=== PATIENT | female | born 1960 | race Caucasian/White ===

== ENCOUNTER → 2018-02-05 09:13 | Outpatient (CLI) | payer OTHER, SELFPAY ==
--- NOTE | 2018-02-05 09:17 | DI.RAD.S_ITS ---
PROCEDURE: XR CHEST 2V INDICATIONS: ongoing cough TECHNIQUE: 2 views of the chest were acquired. COMPARISON: None. FINDINGS: Surgical changes and devices: None. Lungs and pleura: No pleural effusions or pneumothorax. Lungs are clear. Mediastinum: Mediastinal contours are normal. Heart size is normal. Bones and chest wall: No suspicious bony abnormalities. Soft tissues appear unremarkable. IMPRESSION: Source of persistent cough not found. Dictated by: Ren Hill M.D. on 02/05/2018 at 10:32 Approved by: Ren Hill M.D. on 02/05/2018 at 10:33
[2018-02-05 12:29] LABS: Blood Urea Nitrogen 14 mg/dL (7-17); Calcium 9.2 mg/dL (8.4-10.2); Carbon Dioxide 25 mmol/L (22-32); Chloride 105 mmol/L (98-107); Estimated Glomerular Filt Rate > 60.0 mL/min (>60); Glucose 112 mg/dL (70-100); HEMOLYSIS 17 (0-50); Potassium 3.9 mmol/L (3.4-5.1); Sodium 141 mmol/L (137-145)
[2018-02-05 12:51] LABS: Hematocrit 38.3 % (36-46); Mean Corpuscular Hemoglobin 30.9 PG (26-34); Mean Corpuscular Volume 90.9 fL (80-100); Platelet Count 288 X10^3/uL (150-400); Red Blood Cell Count 4.22 X10^6/uL (4.0-5.2); Red Cell Distribution Width 13.2 % (11.6-14.8); White Blood Cell Count 10.6 X10^3/uL (4.5-11.0)
[2018-02-05 12:53] LABS: Add Manual Diff / Slide Review YES
[2018-02-05 12:57] LABS: Thyroid Stimulating Hormone 1.75 uIU/mL (0.47-4.68)
[2018-02-05 13:07] LABS: Neutrophils Absolute Manual 8162 /uL (3000-5900); Total Cells Counted 100
[2018-02-05 13:08] LABS: Morphology Comment Normal Morphology
== END ==
PROVIDERS: Family Provider Family Medicine; PCP Family Medicine; Visit Provider Family Medicine
DX: R05 Cough (principal); D64.9 Anemia, unspecified
CPT/HCPCS: 36415; 71046; 80048; 84443; 85025

== ENCOUNTER → 2018-04-19 11:24 | Outpatient (CLI) | payer OTHER, SELFPAY ==
--- NOTE | 2018-04-19 | DI.MG.S_ITS ---
BILATERAL DIGITAL SCREENING MAMMOGRAM 3D/2D WITH CAD: 04/19/2018 CLINICAL: Routine screening. Comparison is made to exams dated: 09/23/2015 mammogram, 05/02/2012 mammogram, and 04/13/2011 mammogram - [facility]. The tissue of both breasts is heterogeneously dense. This may lower the sensitivity of mammography. Current study was also evaluated with a Computer Aided Detection (CAD) system. No significant masses, calcifications, or other findings are seen in either breast. There has been no significant interval change. IMPRESSION: NEGATIVE There is no mammographic evidence of malignancy. A 1 year screening mammogram is recommended. This exam was interpreted at Station ID: [id number]. NOTE: For mammograms, a report in lay terms will be sent to the patient. Approximately 15% of breast malignancies will not be visualized mammographically. In the management of a palpable breast mass, a negative mammogram must not discourage biopsy of a clinically suspicious lesion. Electronically Signed By: Safia bower/edith:04/21/2018 09:05:07 copy to: KELLY GAVIN letter sent: Normal Exam ACR BI-RADS Category 1: Negative 3341F
== END ==
PROVIDERS: PCP Family Medicine; Visit Provider Family Medicine
DX: Z12.31 Encounter for screening mammogram for malignant neoplasm of breast (principal)
CPT/HCPCS: 77063; 77067

== ENCOUNTER → 2018-08-07 14:26 | Outpatient (CLI) | payer OTHER, SELFPAY ==
[2018-08-07 15:02] LABS: Influenza A and B by PCR Rapid Negative (Negative)
== END ==
PROVIDERS: PCP Family Medicine; Visit Provider Registered Nurse
DX: R50.9 Fever, unspecified (principal)
CPT/HCPCS: 87400

== ENCOUNTER → 2020-05-13 13:34 | Outpatient (CLI) | payer OTHER, SELFPAY ==
[2020-05-13 14:40] LABS: Add Manual Diff / Slide Review NO; Basophils Absolute Auto 0 /uL (0-100); Basophils Percent Auto 0.7 % (0-2); Eosinophils Absolute Auto 100 /uL (0-450); Eosinophils Percent Auto 1.3 % (2-4); Hematocrit 36.9 % (36-46); Hemoglobin 13.2 g/dL (12.0-16.0); Lymphocytes Absolute Auto 1700 /uL (1100-4500); Lymphocytes Percent Auto 30.7 % (25-40); Mean Corpuscular HGB Conc 35.6 % (30-36); Mean Corpuscular Hemoglobin 32.9 PG (26-34); Mean Corpuscular Volume 92.5 fL (80-100); Monocytes Absolute Auto 500 /uL (0-900); Monocytes Percent Auto 9.3 % (3-14); Neutrophils Absolute Auto 3100 /uL (1500-7000); Platelet Count 240 X10^3/uL (150-400); Red Cell Distribution Width 13.5 % (11.6-14.8); White Blood Cell Count 5.4 X10^3/uL (4.5-11.0)
[2020-05-13 14:53] LABS: Hemoglobin A1C% w Est Avg Glu 5.8 % (4.0-6.0)
[2020-05-13 14:58] LABS: Alanine Aminotransferase 20 IU/L (<35); Albumin 4.3 g/dL (3.5-5.0); Albumin Globulin Ratio 1.4 (1.0-2.8); Alkaline Phosphatase 45 U/L (38-126); Aspartate Aminotransferase 25 IU/L (14-36); BUN Creatinine Ratio 27.4 (6-22); Bilirubin Total 0.4 mg/dL (0.2-1.3); Blood Urea Nitrogen 20 mg/dL (7-17); Calcium 9.7 mg/dL (8.4-10.2); Carbon Dioxide 33 mmol/L (22-32); Chloride 103 mmol/L (98-107); Cholesterol 189 mg/dL (140-199); Estimated Glomerular Filt Rate > 60.0 mL/min (>60); Glucose 114 mg/dL (70-100); HDL Cholesterol 64 mg/dL (40-60); HEMOLYSIS < 15 (0-50); LDL Cholesterol Calculated 113 mg/dL (<100); Potassium 4.5 mmol/L (3.4-5.1); Sodium 138 mmol/L (137-145); Total Protein 7.3 g/dL (6.3-8.2); Triglycerides 58 mg/dL (35-150)
== END ==
PROVIDERS: PCP Family Medicine; Referring Provider Family Medicine; Visit Provider Family Medicine
DX: I10 Essential (primary) hypertension (principal); R63.1 Polydipsia; Z83.3 Family history of diabetes mellitus
CPT/HCPCS: 36415; 80053; 80061; 83036; 85025

== ENCOUNTER → 2021-01-11 10:50 | Outpatient (CLI) | payer OTHER, SELFPAY ==
[2021-01-11 12:57] LABS: Hematocrit 33.9 % (36-46); Hemoglobin 13.2 g/dL (12.0-16.0); Mean Corpuscular Hemoglobin 37.4 PG (26-34); Mean Corpuscular Volume 95.8 fL (80-100); Platelet Count 232 X10^3/uL (150-400); Red Blood Cell Count 3.54 X10^6/uL (4.0-5.2); Red Cell Distribution Width 13.5 % (11.6-14.8); White Blood Cell Count 4.8 X10^3/uL (4.5-11.0)
[2021-01-11 13:38] LABS: Alanine Aminotransferase 23 IU/L (<35); Albumin 4.3 g/dL (3.5-5.0); Albumin Globulin Ratio 1.4 (1.0-2.8); Alkaline Phosphatase 48 U/L (38-126); Aspartate Aminotransferase 27 IU/L (14-36); BUN Creatinine Ratio 25.4 (6-22); Bilirubin Total 0.2 mg/dL (0.2-1.3); Blood Urea Nitrogen 17 mg/dL (7-17); Carbon Dioxide 28 mmol/L (22-32); Chloride 103 mmol/L (98-107); Estimated Glomerular Filt Rate > 60.0 mL/min (>60); Glucose 109 mg/dL (70-100); HEMOLYSIS < 15 (0-50); Potassium 4.9 mmol/L (3.4-5.1); Sodium 138 mmol/L (137-145); Total Protein 7.3 g/dL (6.3-8.2)
[2021-01-11 14:06] LABS: TSH w/ Reflex to FT4 1.02 uIU/mL (0.47-4.68)
== END ==
PROVIDERS: PCP Nurse Practitioner Family; Referring Provider Nurse Practitioner Family; Visit Provider Nurse Practitioner Family
DX: Z00.00 Encounter for general adult medical examination without abnormal findings (principal); F41.9 Anxiety disorder, unspecified; I10 Essential (primary) hypertension
CPT/HCPCS: 36415; 80053; 84443; 85027

== ENCOUNTER 2021-02-03 18:19 | Emergency (ER) | payer OTHER, SELFPAY ==
[2021-02-03 18:28] VITALS: BP 151/90; PULSE 73; RESP 18; TEMP 37; O2SAT 98; BMI 27.4
[2021-02-03 22:23] VITALS: BP 138/99; PULSE 75; O2SAT 96
[2021-02-03] MEDS: TET,DIPH,PERTUSS(ACELL),VAC/PF 0.5 ML SYRINGE IM (22:30)
--- NOTE | 2021-02-03 22:33 | ED.WOUNDLAC ---
HPI - Wound/Laceration General Chief Complaint: Wound/Laceration Stated Complaint: LEFT LEG LACERATION AND BUMP Time Seen by Provider: 02/03/21 22:33 Source: patient Mode of arrival: Ambulatory Limitations: no limitations History of Present Illness HPI narrative: 60-year-old female nonsmoker with history of ulcerative colitis and anxiety presents with a chief complaint of an accidental laceration to her left posterior ankle just prior to arrival. She had been trying to move a large floor standing speaker when it toppled over and landed on the back of her leg. She has minimal pain and tenderness but this is worsened by ambulation. She denies any numbness, tingling or weakness. She is otherwise well and free of complaint. Related Data Previous Rx's Medication Instructions Recorded amlodipine 5 mg tablet (Norvasc) 5 mg PO QDAY #90 tab 01/11/21 citalopram 40 mg tablet See Rx Instructions .ROUTE 01/11/21 .COMPLEX #90 tablet nadolol 20 mg tablet See Rx Instructions .ROUTE 01/11/21 .COMPLEX #180 tab rizatriptan 10 mg disintegrating 10 mg PO PRN PRN #9 tab 01/11/21 tablet (Maxalt-MAXILLOFACIAL PROSTHETICS DENTIST) doxycycline hyclate 100 mg capsule 100 mg PO BID #20 cap 02/03/21 Allergies Allergy/AdvReac Type Severity Reaction Status Date / Time iodine Allergy Severe STOP Verified 02/03/21 18:35 BREATHING Review of Systems Review of Systems Narrative: GENERAL: Denies chills, fatigue, malaise, fever, sweats. HEENT: Denies sinus pain, ear pain, sore throat, difficulty swallowing, dizziness. RESPIRATORY: Denies dyspnea, cough, wheezing, hemoptysis, sputum. CARDIOVASCULAR: Denies chest pain, palpitations, orthopnea, edema, GASTROINTESTINAL: Denies nausea, vomiting, abdominal pain, diarrhea, constipation, melena. : Denies dysuria, frequency, incontinence, hematuria, urinary retention. MUSCULOSKELETAL: denies weakness, joint pain, or bony pain SKIN: The HPI NEUROLOGIC: Denies weakness, headache, numbness, change in speech, confusion, seizures, incoordination. PSYCHIATRIC: No concerning psychosocial issues. 12 point review of systems is negative except for those stated above Patient History Medical History Abscess of face (2013) Chicken pox (~2010) Depression Headache Herpes (~2010) Migraines (2009) Rash and nonspecific skin eruption Spider bite (2012) Staph infection (2012) Ulcerative colitis (~2019) Wears glasses Surgical History Anesthesia History of laparoscopy (~1989) Status post breast biopsy (2011) Status post breast biopsy (2012) Status post colonoscopy (1994) Family History Brother Age: 58 Hypertension High cholesterol Diabetes mellitus Father Cancer Diabetes mellitus Heart disease Hypertension High cholesterol Mother Hypertension High cholesterol Osteoporosis Stroke Cancer Diabetes mellitus Social History Smoking Status: Never smoker alcohol intake: never substance use type: does not use Smoking Status: Never smoker alcohol intake frequency: 0-2 drinks per day Substance Use Type: does not use Exam Narrative Exam Narrative: GEN: AOx3 and in mild distress EYES: Pupils are equal, round, and reactive to light and accommodation. Extraoccular muscles are intact bilaterally. There is no subconjunctival hemorrhage or exudate. CHEST: Lungs are clear to auscultation bilaterally and free of wheezes, rales, or rhonchi. Heart rate is regular rhythm, there are no murmurs, clicks, rubs, or gallops. There is no chest wall tenderness. ABD: Abdomen is soft and nontender. There is no guarding or rebound. Bowel sounds are normal in all 4 quadrants. There is no mass or organomegaly. EXT: Full painless ROM of all extremities with no loss of sensation or strength. There is a 3 cm x 2 cm dark purple area of ecchymosis on the posterior calf without surrounding erythema or tenderness SKIN: 3.5 cm slightly irregular laceration overlying the posterior left ankle. Achilles tendon is fully intact and is visualized in a bloodless field. No foreign body noted. [place], and dry. No erythema or rash Initial Vital Signs Initial Vital Signs: Vital Signs Temperature 98.6 F 02/03/21 18:28 Pulse Rate 73 02/03/21 18:28 Respiratory Rate 18 02/03/21 18:28 Blood Pressure 151/90 H 02/03/21 18:28 Pulse Oximetry 98 02/03/21 18:28 Procedures Laceration Repair Laceration 1: Site: lower extremity Side (If applicable): left Size (cm): 3.5 Description: irregular and clean Depth: simple, single layer Local Anesthetic: lidocaine 1% and with bicarb Amount of anesthesia used (mL): 4 Pre-repair: wound explored Skin layer closed with: nylon Size (cm): 4-0 Number of sutures: 6 Course Orders Ordered: Discontinued Medications Bacitracin (Bacitracin Oint 0.9 Gm Pckt) 1 applic TOP NOW ONE Stop: 02/03/21 22:58 Last Admin: 02/03/21 22:58 Dose: 1 applic Documented by: ROSANGELA Diphtheria/Tetanus/Acell Pertussis (Tet,Diph,Pertuss(Acell),Vac/Pf 0.5 Ml Syringe) 0.5 ml IM .ONCE ONE Stop: 02/03/21 18:36 Last Admin: 02/03/21 22:30 Dose: 0.5 ml Documented by: JUANA Lidocaine/Sodium Bicarbonate (Lido 1%/Sod Bicarb 8.4% (10ml) 10 Ml Syringe) 10 ml INJ NOW ONE Stop: 02/03/21 22:37 Last Admin: 02/03/21 22:39 Dose: 10 ml Documented by: JUANA Vital Signs Vital signs: Vital Signs - 8 hr 02/03/21 22:23 02/03/21 23:03 Pulse Rate 75 71 Respiratory Rate 14 Blood Pressure 138/99 H 118/78 Pulse Oximetry 96 96 Discharge Plan Departure Patient Disposition: Home Clinical Impression: Laceration of ankle, left Qualifiers: Encounter type: initial encounter Qualified Code(s): S91.012A - Laceration without foreign body, left ankle, initial encounter Instructions: DI for Laceration Repair Activity Restrictions/Additional Instructions: *You have been diagnosed with [left posterior ankle laceration] *What to do: *Please continue to take your regular medications as directed. [ x] New medication prescriptions sent to your pharmacy: [[facility]] [ ] New medication written as a paper prescription [ ] No new medications given * Please keep the wound clean and dry to the best of your ability. Please monitor for signs of infection such as redness to the skin or increasing pain. Have the sutures removed by your doctor in about 7-10 days. If you are unable to get into your doctor, we would be happy to remove the sutures in that same timeframe. *If you do not have a primary care provider please contact the [facility] Resource line at [phone]. They will ask some questions about your medical history and help get you set up with a doctor in the community. *Return to Emergency Department if you should have any new, worsening or concerning symptoms, such as [fever greater than 101 F, shaking chills, worsening pain, persistent vomiting or other bothersome symptoms] Prescriptions: New doxycycline hyclate 100 mg capsule 100 mg PO BID Qty: 20 RF: 0 No Action amlodipine [Norvasc] 5 mg tablet 5 mg PO QDAY Qty: 90 RF: 3 citalopram 40 mg tablet See Rx Instructions .ROUTE .COMPLEX Qty: 90 RF: 3 nadolol 20 mg tablet See Rx Instructions .ROUTE .COMPLEX Qty: 180 RF: 3 rizatriptan [Maxalt-MAXILLOFACIAL PROSTHETICS DENTIST] 10 mg tablet,disintegrating 10 mg PO PRN PRN (Reason: migraine headache) Qty: 9 RF: 3 Referrals: Jun Weldon ARNP [Primary Care Provider] -
[2021-02-03] MEDS: LIDO 1%/SOD BICARB 8.4% (10ML) 10 ML SYRINGE INJ (22:39)
--- NOTE | 2021-02-03 22:44 | PC.NURSE ---
There is a bruise under left knee where patient feels a knot and is concerned over DVT risks. Dr Wolf informed and evaluated at bedside
[2021-02-03] MEDS: BACITRACIN OINT 0.9 GM PCKT 1 APPLIC TOP (22:58)
--- NOTE | 2021-02-03 23:02 | PC.NURSE ---
Bacitracin applied, wrapped with non adherent gauze and kurlex
[2021-02-03 23:03] VITALS: BP 118/78; PULSE 71; RESP 14; O2SAT 96
== END 2021-02-03 23:04 | disposition home or self-care (01) ==
PROVIDERS: Emergency Provider Emergency Medicine; PCP Nurse Practitioner Family
DX: S91.012A Laceration without foreign body, left ankle, initial encounter (principal); W19.XXXA Unspecified fall, initial encounter; Z23 Encounter for immunization
CPT/HCPCS: 12002; 90471; 99283; 99284; 90715

== ENCOUNTER → 2021-02-08 13:46 | Outpatient (CLI) | payer OTHER, SELFPAY ==
[2021-02-08 14:09] LABS: Add Manual Diff / Slide Review NO; Basophils Absolute Auto 100 /uL (0-100); Basophils Percent Auto 0.8 % (0-2); Eosinophils Absolute Auto 100 /uL (0-450); Eosinophils Percent Auto 1.5 % (2-4); Hemoglobin 12.9 g/dL (12.0-16.0); Lymphocytes Absolute Auto 1800 /uL (1100-4500); Lymphocytes Percent Auto 27.2 % (25-40); Mean Corpuscular HGB Conc 33.1 % (30-36); Mean Corpuscular Volume 90.8 fL (80-100); Monocytes Absolute Auto 600 /uL (0-900); Monocytes Percent Auto 8.8 % (3-14); Neutrophils Absolute Auto 4200 /uL (1500-7000); Neutrophils Percent Auto 61.7 % (50-75); Platelet Count 273 X10^3/uL (150-400); Red Blood Cell Count 4.29 X10^6/uL (4.0-5.2); Red Cell Distribution Width 13.3 % (11.6-14.8); White Blood Cell Count 6.8 X10^3/uL (4.5-11.0)
== END ==
PROVIDERS: PCP Nurse Practitioner Family; Referring Provider Nurse Practitioner Family; Visit Provider Nurse Practitioner Family
DX: R79.89 Other specified abnormal findings of blood chemistry (principal)
CPT/HCPCS: 36415; 85025

== ENCOUNTER → 2021-02-15 14:20 | Outpatient (CLI) | payer OTHER, SELFPAY ==
--- NOTE | 2021-02-15 14:21 | DI.MG.S_ITS ---
BILATERAL DIGITAL SCREENING MAMMOGRAM 3D/2D WITH CAD: 02/15/2021 CLINICAL: Routine screening. Comparison is made to exams dated: 04/19/2018 mammogram, 09/23/2015 mammogram, and 05/02/2012 mammogram - [facility]. The tissue of both breasts is heterogeneously dense. This may lower the sensitivity of mammography. Current study was also evaluated with a Computer Aided Detection (CAD) system. No significant masses, calcifications, or other findings are seen in either breast. There has been no significant interval change. IMPRESSION: NEGATIVE There is no mammographic evidence of malignancy. A 1 year screening mammogram is recommended. This exam was interpreted at Station ID: [id number]. NOTE: For mammograms, a report in lay terms will be sent to the patient. Approximately 15% of breast malignancies will not be visualized mammographically. In the management of a palpable breast mass, a negative mammogram must not discourage biopsy of a clinically suspicious lesion. Electronically Signed By: Dusty Enriquez acr/penrad:02/15/2021 18:30:39 copy to: KELLY GAVIN letter sent: Normal Exam ACR BI-RADS Category 1: Negative 3341F
== END ==
PROVIDERS: PCP Nurse Practitioner Family; Referring Provider Nurse Practitioner Family; Visit Provider Nurse Practitioner Family
DX: Z12.31 Encounter for screening mammogram for malignant neoplasm of breast (principal)
CPT/HCPCS: 77063; 77067

== ENCOUNTER → 2022-05-07 15:14 | Outpatient (CLI) | payer OTHER, SELFPAY ==
[2022-05-07 18:51] LABS: Alanine Aminotransferase 27 IU/L (<35); Albumin 4.2 g/dL (3.5-5.0); Albumin Globulin Ratio 1.4 (1.0-2.8); Alkaline Phosphatase 64 U/L (38-126); Aspartate Aminotransferase 26 IU/L (14-36); Bilirubin Total 0.4 mg/dL (0.2-1.3); Blood Urea Nitrogen 17 mg/dL (7-17); Calcium 9.2 mg/dL (8.4-10.2); Carbon Dioxide 30 mmol/L (22-32); Chloride 101 mmol/L (98-107); Estimated Glomerular Filt Rate > 60 mL/min (>60); Glucose 85 mg/dL (70-100); HEMOLYSIS < 15 (0-50); Potassium 4.4 mmol/L (3.4-5.1); Sodium 137 mmol/L (137-145); Total Protein 7.2 g/dL (6.3-8.2)
[2022-05-07 19:16] LABS: Hematocrit 39.2 % (36-46); Hemoglobin 13.1 g/dL (12.0-16.0); Mean Corpuscular HGB Conc 33.5 % (30-36); Mean Corpuscular Hemoglobin 29.7 PG (26-34); Mean Corpuscular Volume 88.7 fL (80-100); Platelet Count 217 X10^3/uL (150-400); Red Blood Cell Count 4.42 X10^6/uL (4.0-5.2); Red Cell Distribution Width 13.5 % (11.6-14.8); White Blood Cell Count 8.5 X10^3/uL (4.5-11.0)
[2022-05-08 20:42] LABS: Hemoglobin A1C% w Est Avg Glu 5.8 % (4.0-6.0)
== END ==
PROVIDERS: PCP Registered Nurse Diabetes Educator; Referring Provider Registered Nurse Diabetes Educator; Visit Provider Registered Nurse Diabetes Educator
DX: D64.9 Anemia, unspecified (principal); E78.5 Hyperlipidemia, unspecified; I10 Essential (primary) hypertension; R73.01 Impaired fasting glucose
CPT/HCPCS: 36415; 80053; 83036; 85027

== ENCOUNTER → 2022-09-13 12:22 | Outpatient (CLI) | payer OTHER, SELFPAY ==
[2022-09-13 14:19] LABS: TSH w/ Reflex to FT4 1.91 uIU/mL (0.47-4.68)
== END ==
PROVIDERS: PCP Registered Nurse Diabetes Educator; Referring Provider Nurse Practitioner Family; Visit Provider Nurse Practitioner Family
DX: E04.1 Nontoxic single thyroid nodule (principal)
CPT/HCPCS: 36415; 84443

== ENCOUNTER → 2022-09-18 15:46 | Outpatient (CLI) | payer OTHER, SELFPAY ==
--- NOTE | 2022-09-18 15:49 | DI.US.S_ITS ---
PROCEDURE: US THYROID INDICATIONS: NODULE TECHNIQUE: Real-time scanning was performed of the thyroid gland, with image documentation. COMPARISON: None. FINDINGS: Right: Thyroid lobe measures 4.3 x 1.4 x 1.7 cm, and is heterogeneous in echotexture. Left: Thyroid lobe measures 4.7 x 2.8 x 3.6 cm, and is heterogeneous in echotexture. Isthmus: 3.5 mm thick. Nodule number: 1 Location: Left mid inferior Size: 3.7 cm. Composition: Predominantly cystic Echogenicity: Predominantly anechoic Shape: wider than tall. Margins: Smooth Echogenic foci: None. Total points: 0 ACR TI-RADS category: Colloid cyst Nodule number: 2 Location: Left mid Size: 1.6 cm. Composition: Solid Echogenicity: Hypoechoic Shape: wider than tall. Margins: Smooth Echogenic foci: None. Total points: 4 ACR TI-RADS category: Moderately suspicious Nodule number: 3 Location: Right isthmus Size: 0.9 cm. Composition: Solid Echogenicity: Hypoechoic Shape: wider than tall. Margins: Smooth Echogenic foci: None. Total points: 4 ACR TI-RADS category: Moderately suspicious IMPRESSION: 1. 3.7 cm left colloid cyst and 2 small bilateral solid thyroid nodules as above. Recommend continued followup ultrasound as detailed below. ACR TI-RADS definitions and recommendations: TI-RADS 1 (benign): 0 points. FNA not needed. TI-RADS 2 (not suspicious): 2 points. FNA not needed. TI-RADS 3 (mildly suspicious): 3 points. * FNA if 2.5 cm or larger, follow up if 1.5 cm or larger (at 1, 3, and 5 years). TI-RADS 4 (moderately suspicious): 4-6 points. * FNA if 1.5 cm or larger, follow up if 1 cm or larger (at 1, 2, 3, and 5 years). TI-RADS 5 (highly suspicious): 7 points or more. * FNA if 1 cm or larger, follow up if 0.5 cm or larger (every year for 5 years). Dictated by: Sher ORTEGA Interpreted: Chrissy Fontana MD on 09/19/2022 at 13:20 Transcribed by: KARLOS on 09/19/2022 at 13:22 Approved by: Chrissy Fontana M.D. on 09/19/2022 at 18:06
== END ==
PROVIDERS: PCP Registered Nurse Diabetes Educator; Referring Provider Nurse Practitioner Family; Visit Provider Nurse Practitioner Family
DX: E04.2 Nontoxic multinodular goiter (principal)
CPT/HCPCS: 76536

== ENCOUNTER → 2023-05-01 13:07 | Outpatient (CLI) | payer OTHER, SELFPAY ==
[2023-05-01 13:38] LABS: Add Manual Diff / Slide Review NO; Basophils Absolute Auto 0 /uL (0-100); Basophils Percent Auto 0.7 % (0-2); Eosinophils Absolute Auto 100 /uL (0-450); Eosinophils Percent Auto 1.8 % (2-4); Hemoglobin 12.7 g/dL (12.0-16.0); Lymphocytes Absolute Auto 1600 /uL (1100-4500); Lymphocytes Percent Auto 26.6 % (25-40); Mean Corpuscular HGB Conc 34.3 % (30-36); Mean Corpuscular Hemoglobin 31.8 PG (26-34); Mean Corpuscular Volume 92.9 fL (80-100); Monocytes Absolute Auto 600 /uL (0-900); Monocytes Percent Auto 9.7 % (3-14); Neutrophils Absolute Auto 3700 /uL (1500-7000); Neutrophils Percent Auto 61.2 % (50-75); Platelet Count 252 X10^3/uL (150-400); Red Blood Cell Count 3.98 X10^6/uL (4.0-5.2); Red Cell Distribution Width 13.7 % (11.6-14.8); White Blood Cell Count 6.1 X10^3/uL (4.5-11.0)
[2023-05-01 14:04] LABS: Alanine Aminotransferase 43 IU/L (<35); Albumin Globulin Ratio 1.1 (1.0-2.8); Alkaline Phosphatase 55 U/L (38-126); Aspartate Aminotransferase 32 IU/L (14-36); BUN Creatinine Ratio 21.3 (6-22); Bilirubin Total 0.5 mg/dL (0.2-1.3); Blood Urea Nitrogen 16 mg/dL (7-17); Calcium 9.4 mg/dL (8.4-10.2); Carbon Dioxide 28 mmol/L (22-32); Chloride 103 mmol/L (98-107); Estimated Glomerular Filt Rate > 60 mL/min (>60); Globulin 3.5 g/dL (1.7-4.1); Glucose 105 mg/dL (80-110); HEMOLYSIS < 15 (0-50); Potassium 4.6 mmol/L (3.4-5.1); Sodium 137 mmol/L (137-145); Total Protein 7.5 g/dL (6.3-8.2)
== END ==
PROVIDERS: PCP Registered Nurse Diabetes Educator; Referring Provider Physician Assistant; Visit Provider Physician Assistant
DX: I10 Essential (primary) hypertension (principal); Z83.3 Family history of diabetes mellitus
CPT/HCPCS: 36415; 80053; 83036; 85025

== ENCOUNTER → 2023-05-17 08:16 | Outpatient (CLI) | payer OTHER, SELFPAY ==
--- NOTE | 2023-05-17 08:18 | DI.MG.S_ITS ---
BILATERAL DIGITAL SCREENING MAMMOGRAM 3D/2D WITH CAD: 05/17/2023 CLINICAL: Routine screening. Comparison is made to exams dated: 02/15/2021 mammogram, 04/19/2018 mammogram, and 09/23/2015 mammogram - [facility]. Both breasts are heterogeneously dense, which may obscure small masses (category c / 51-75% glandular tissue). Current study was also evaluated with a Computer Aided Detection (CAD) system. No significant masses, calcifications, or other findings are seen in either breast. There has been no significant interval change. IMPRESSION: NEGATIVE There is no mammographic evidence of malignancy. A 1 year screening mammogram is recommended. Based on the Tyrer Cuzick model (a risk assessment model) the patient's lifetime risk is 12.0% and her 10 year risk is 4.9%. According to the ACR, ACS, and NCCN guidelines, an annual breast MRI exam along with mammogram is recommended if the patient's lifetime risk is 20% or greater. This exam was interpreted at Station ID: [id number]. NOTE: For mammograms, a report in lay terms will be sent to the patient. Approximately 15% of breast malignancies will not be visualized mammographically. In the management of a palpable breast mass, a negative mammogram must not discourage biopsy of a clinically suspicious lesion. Electronically Signed By: Kalie Mejia M.D., PH.D eb/penrad:05/17/2023 09:17:00 copy to: KELLY GAVIN letter sent: Normal Exam ACR BI-RADS Category 1: Negative 3341F
--- NOTE | 2023-05-17 08:18 | DI.US.S_ITS ---
PROCEDURE: US THYROID INDICATIONS: reeval nodules TECHNIQUE: Real-time scanning was performed of the thyroid gland, with image documentation. COMPARISON: [facility], US, US THYROID, 09/18/2022, 15:54. FINDINGS: Right: Thyroid lobe measures 5.0 x 1.8 x 1.6 cm, and is homogeneous in echotexture. Left: Thyroid lobe measures 5.5 x 2.3 x 1.9 cm, and is homogenous in echotexture. Isthmus: 0.4 cm thick. Nodule number: 1 Location: Left mid inferior Size: 2.5 x 1.5 x 1.7 cm (previously 3.7 cm) Composition: Mixed cystic and solid Echogenicity: Hypoechoic Shape: Wider than tall Margins: Smooth Echogenic foci: Punctate Total points: 6 ACR TI-RADS category: Moderately suspicious Nodule number: 2 Location: Left mid thyroid medially Size: 1.4 x 0.9 x 0.6 cm, not significantly changed Composition: Mixed cystic and solid Echogenicity: Hypoechoic Shape: Wider than tall Margins: Smooth Echogenic foci: Punctate Total points: 6 ACR TI-RADS category: Moderately suspicious Nodule number: 3 Location: Right isthmus Size: 1.0 x 0.7 x 0.4 cm, not significantly changed Composition: Solid Echogenicity: Hypoechoic Shape: wider than tall. Margins: Smooth Echogenic foci: None Total points: 4 ACR TI-RADS category: Moderately suspicious Nodule number: 4 Location: Left superior Size: 0.8 x 0.7 x 0.4 cm, not previously seen Composition: Solid Echogenicity: Hypoechoic Shape: wider than tall. Margins: Smooth Echogenic foci: None Total points: 4 ACR TI-RADS category: Moderately suspicious IMPRESSION: Bilateral moderately suspicious thyroid nodules, the largest of which has decreased in size when compared to the ultrasound from 09/18/2022. Recommend continued ultrasound follow-up based on guidelines provided below. ACR TI-RADS definitions and recommendations: TI-RADS 1 (benign): 0 points. FNA not needed. TI-RADS 2 (not suspicious): 2 points. FNA not needed. TI-RADS 3 (mildly suspicious): 3 points. * FNA if 2.5 cm or larger, follow up if 1.5 cm or larger (at 1, 3, and 5 years). TI-RADS 4 (moderately suspicious): 4-6 points. * FNA if 1.5 cm or larger, follow up if 1 cm or larger (at 1, 2, 3, and 5 years). TI-RADS 5 (highly suspicious): 7 points or more. * FNA if 1 cm or larger, follow up if 0.5 cm or larger (every year for 5 years). Approved by: Wilner Crespo M.D. on 05/17/2023 at 13:15
== END ==
PROVIDERS: PCP Registered Nurse Diabetes Educator; Referring Provider Physician Assistant; Visit Provider Physician Assistant
DX: Z12.31 Encounter for screening mammogram for malignant neoplasm of breast (principal); E04.2 Nontoxic multinodular goiter
CPT/HCPCS: 76536; 77063; 77067

== ENCOUNTER → 2023-05-21 16:57 | Outpatient (CLI) | payer OTHER, SELFPAY ==
[2023-05-21 17:38] LABS: Add Manual Diff / Slide Review NO; Basophils Absolute Auto 100 /uL (0-100); Eosinophils Absolute Auto 0 /uL (0-450); Eosinophils Percent Auto 0.6 % (2-4); Hemoglobin 13.3 g/dL (12.0-16.0); Lymphocytes Absolute Auto 1600 /uL (1100-4500); Lymphocytes Percent Auto 19.7 % (25-40); Mean Corpuscular Volume 88.6 fL (80-100); Monocytes Absolute Auto 700 /uL (0-900); Monocytes Percent Auto 8.4 % (3-14); Neutrophils Absolute Auto 5800 /uL (1500-7000); Neutrophils Percent Auto 70.3 % (50-75); Platelet Count 255 X10^3/uL (150-400); Red Blood Cell Count 4.28 X10^6/uL (4.0-5.2); Red Cell Distribution Width 13.4 % (11.6-14.8); White Blood Cell Count 8.2 X10^3/uL (4.5-11.0)
[2023-05-21 17:51] LABS: Alanine Aminotransferase 49 IU/L (<35); Albumin 4.3 g/dL (3.5-5.0); Albumin Globulin Ratio 1.1 (1.0-2.8); Alkaline Phosphatase 67 U/L (38-126); Aspartate Aminotransferase 38 IU/L (14-36); BUN Creatinine Ratio 17.2 (6-22); Bilirubin Total 0.4 mg/dL (0.2-1.3); Blood Urea Nitrogen 11 mg/dL (7-17); Calcium 9.7 mg/dL (8.4-10.2); Carbon Dioxide 27 mmol/L (22-32); Chloride 101 mmol/L (98-107); Estimated Glomerular Filt Rate > 60 mL/min (>60); Globulin 3.8 g/dL (1.7-4.1); Glucose 92 mg/dL (80-110); HEMOLYSIS < 15 (0-50); Potassium 3.8 mmol/L (3.4-5.1); Sodium 136 mmol/L (137-145); Total Protein 8.1 g/dL (6.3-8.2)
[2023-05-21 18:04] LABS: Free T3, Triiodothyronine Free 3.81 pg/mL (2.77-5.27); Free T4, Direct Thyroxine 1.14 ng/dL (0.78-2.19)
[2023-05-23 07:21] LABS: Thyroid Peroxidase Antibodies 20 IU/mL (0-34)
== END ==
PROVIDERS: PCP Registered Nurse Diabetes Educator; Referring Provider Physician Assistant; Visit Provider Physician Assistant
DX: E04.1 Nontoxic single thyroid nodule (principal)
CPT/HCPCS: 36415; 80053; 84439; 84443; 84481; 85025; 86376

== ENCOUNTER → 2023-10-12 12:48 | Outpatient (CLI) | payer OTHER, SELFPAY ==
[2023-10-12 13:16] LABS: Hemoglobin A1C% w Est Avg Glu 6.1 % (4.0-6.0)
[2023-10-12 13:21] LABS: Alanine Aminotransferase 23 IU/L (<35); Albumin 4.3 g/dL (3.5-5.0); Albumin Globulin Ratio 1.3 (1.0-2.8); Alkaline Phosphatase 59 U/L (38-126); Aspartate Aminotransferase 25 IU/L (14-36); BUN Creatinine Ratio 22.8 (6-22); Bilirubin Total 0.5 mg/dL (0.2-1.3); Blood Urea Nitrogen 13 mg/dL (7-17); Calcium 9.3 mg/dL (8.4-10.2); Carbon Dioxide 28 mmol/L (22-32); Chloride 107 mmol/L (98-107); Estimated Glomerular Filt Rate > 60 mL/min (>60); Globulin 3.2 g/dL (1.7-4.1); Glucose 101 mg/dL (80-110); HEMOLYSIS 17 (0-50); Potassium 4.3 mmol/L (3.4-5.1); Sodium 140 mmol/L (137-145); Total Protein 7.5 g/dL (6.3-8.2)
[2023-10-12 13:22] LABS: Alanine Aminotransferase 23 IU/L (<35); Albumin 4.3 g/dL (3.5-5.0); Albumin Globulin Ratio 1.3 (1.0-2.8); Alkaline Phosphatase 61 U/L (38-126); Aspartate Aminotransferase 25 IU/L (14-36); Bilirubin Total 0.5 mg/dL (0.2-1.3); Bilirubin Unconjugated 0.4 mg/dL (0.0-1.1); Cholesterol 189 mg/dL (140-199); Globulin 3.2 g/dL (1.7-4.1); HDL Cholesterol 48 mg/dL (40-60); HEMOLYSIS < 15 (0-50); LDL Cholesterol Calculated 126 mg/dL (<100); Total Protein 7.5 g/dL (6.3-8.2); Triglycerides 75 mg/dL (35-150)
== END ==
PROVIDERS: Physician Assistant; PCP Registered Nurse Diabetes Educator; Referring Provider Registered Nurse Diabetes Educator; Visit Provider Registered Nurse Diabetes Educator
DX: R74.8 Abnormal levels of other serum enzymes (principal); R73.03 Prediabetes; E78.5 Hyperlipidemia, unspecified
CPT/HCPCS: 36415; 80053; 80061; 80076; 83036

== ENCOUNTER → 2023-10-17 15:42 | Outpatient (CLI) | payer OTHER, SELFPAY ==
--- NOTE | 2023-10-17 15:43 | DI.US.S_ITS ---
PROCEDURE: US THYROID INDICATIONS: reeval TECHNIQUE: Real-time scanning was performed of the thyroid gland, with image documentation. COMPARISON: [facility], US, US THYROID, 05/17/2023, 8:54. FINDINGS: Thyroid: Right lobe measures 4.5 x 1.7 x 1.6 cm. Left lobe measures 3.9 x 1.9 x 2.2 cm. Isthmus is 0.4 cm thick. Echotexture is heterogeneous. Multiple bilateral thyroid cysts.. Nodule number: 1 Location: Left inferior thyroid lobe Size: 2.0 x 1.5 x 1.8 cm. Composition: Solid Echogenicity: Hypoechoic Shape: wider than tall. Margins: Smooth Echogenic foci: Punctate Total points: 7 ACR TI-RADS category: 5 (highly suspicious) Nodule number: 2 Location: Left mid thyroid lobe Size: 1.0 x 1.2 x 0.7 cm. Composition: Predominantly cystic Echogenicity: Anechoic Shape: wider than tall. Margins: Smooth Echogenic foci: None Total points: 0 ACR TI-RADS category: 1 (benign) Nodule number: 3 Location: Right isthmus Size: 0.9 x 0.8 x 0.5 cm. Composition: Solid Echogenicity: Hypoechoic Shape: wider than tall. Margins: Smooth Echogenic foci: None Total points: 4 ACR TI-RADS category: 4 (moderately suspicious) Nodule number: 4 Location: Left superior Size: 1.0 x 0.8 x 0.5 cm. Composition: Solid Echogenicity: Hypoechoic Shape: wider than tall. Margins: Smooth Echogenic foci: None Total points: 4 ACR TI-RADS category: 4 (moderately suspicious) IMPRESSION: Multiple thyroid nodules as before. Left nodule (#1) in the inferior left thyroid lobe measures 2.0 cm in size and is a highly suspicious nodule (TIRADS 5). Recommend further evaluation with fine-needle aspiration if not already accomplished. Recommend follow-up thyroid ultrasound in 1 year for the remaining solid nodules as described above. ACR TI-RADS definitions and recommendations: TI-RADS 1 (benign): 0 points. FNA not needed. TI-RADS 2 (not suspicious): 2 points. FNA not needed. TI-RADS 3 (mildly suspicious): 3 points. * FNA if 2.5 cm or larger, follow up if 1.5 cm or larger (at 1, 3, and 5 years). TI-RADS 4 (moderately suspicious): 4-6 points. * FNA if 1.5 cm or larger, follow up if 1 cm or larger (at 1, 2, 3, and 5 years). TI-RADS 5 (highly suspicious): 7 points or more. * FNA if 1 cm or larger, follow up if 0.5 cm or larger (every year for 5 years). Dictated by: Jaya Holman M.D. on 10/18/2023 at 10:31 Approved by: Jaya Holman M.D. on 10/18/2023 at 10:42
== END ==
PROVIDERS: PCP Registered Nurse Diabetes Educator; Referring Provider Registered Nurse Diabetes Educator; Visit Provider Registered Nurse Diabetes Educator
DX: E04.2 Nontoxic multinodular goiter (principal)
CPT/HCPCS: 76536

== ENCOUNTER → 2023-10-29 14:16 | Outpatient (CLI) | payer OTHER, SELFPAY ==
--- NOTE | 2023-10-29 | PATH_ITS ---
Note [facility] Accession Number: [id number] TESTS RESULT FLAG UNITS REF RANGE LAB Clinician Provided Cytology Information No. of containers..01 Other (Miscellaneous) No. of containers..02 Previously Prepared Cytology Slide Source: LEFT INFERIOR THYROI Clinician ICD10: E04.1 E04.2 DIAGNOSIS: LEFT INFERIOR THYROI FOLLICULAR NEOPLASM. BETHESDA CATEGORY IV. FOLLICULAR NEOPLASM - ONCOCYTIC. MOLECULAR STUDIES PENDING (INTEGRATED ONCOLOGY); RESULTS WILL BE REPORTED SEPARATELY. PLEASE SEE COMMENT. COMMENT: ALTHOUGH THE CYTOLOGIC FEATURES ARE IN KEEPING WITH A FOLLICULAR NEOPLASM, APPROXIMATELY 30% OF ASPIRATES DIAGNOSED FOLLICULAR NEOPLASM (BETHESDA IV) ARE RESULTED BENIGN FOLLICULAR NODULAR DISEASE ON SURGICAL RESECTION. Pathologist ICD10: E04.1, E04.2 Signed out by: Marilu Marvin MD, Pathologist NPI- [id number] Performed by: Daren Tejeda, [employer] [facility] ([facility]) Gross description: 30 CC, COLORLESS, CLEAR RECIEVED: IN CYTOLYT WITH 6 ALCOHOL FIXED AND 6 QUICK STAINED SLIDES ALSO 1 RNA VIAL WILL ON 05-21-2025.VO /VDU 10/30/2023 1215 Local FLAG LEGEND: L-Low Normal,H-High Normal,LL-Alert Low,HH-Alert High <-Panic Low,>-Panic High,A-Abnormal,AA-Critical Abnormal Performed at: [address] [facility] [address], [place] [address] Sherman Montero MD, Performed at: [address] [address], [place], [place] [id number] MD Sherman Montero MD Phone: [phone]
--- NOTE | 2023-10-29 14:17 | DI.US.S_ITS ---
PROCEDURE: US FINE NEEDLE ASPIRATION INDICATIONS: LEFT NODULE TECHNIQUE: The indications, alternatives, benefits, risks, and complications of the procedure were explained to the patient. Written informed consent was obtained and placed in the chart. The area of interest was examined sonographically and a site was chosen for ultrasound guided percutaneous sampling. The skin was prepared and draped in the usual fashion, and anesthetized with 1% lidocaine infiltrated from the skin down to the lesion. Multiple passes were then performed, with contents emptied into an appropriate pathology specimen container. A bandage was applied to the area of access at completion of the study. COMPARISON: [facility], , US THYROID, 05/17/2023, 8:54. [facility], , US THYROID, 10/17/2023, 16:47. FINDINGS: Location of lesion sampled: Left inferior thyroid nodule (nodule #1 on ultrasound from 05/17/2023). [place]: 25 gauge hypodermic needles. Number of passes: 6 Medications: 1% lidocaine for local anaesthesia. Complications: None. IMPRESSION: Successful ultrasound-guided left thyroid nodule fine needle aspiration, with cytology results pending. Approved by: Wilner Crespo M.D. on 10/29/2023 at 16:51
== END ==
PROVIDERS: PCP Registered Nurse Diabetes Educator; Referring Provider Registered Nurse Diabetes Educator; Visit Provider Registered Nurse Diabetes Educator
DX: E04.1 Nontoxic single thyroid nodule (principal); E04.2 Nontoxic multinodular goiter; E78.5 Hyperlipidemia, unspecified; R73.03 Prediabetes; R74.8 Abnormal levels of other serum enzymes; I10 Essential (primary) hypertension
CPT/HCPCS: 10005

== ENCOUNTER → 2024-10-16 14:52 | Outpatient (CLI) | payer OTHER, SELFPAY ==
[2024-10-16 15:20] LABS: Hematocrit 39.3 % (36-46); Hemoglobin 13.5 g/dL (12.0-16.0); Mean Corpuscular HGB Conc 34.3 % (30-36); Mean Corpuscular Volume 87.3 fL (80-100); Platelet Count 246 X10^3/uL (150-400); Red Cell Distribution Width 13.5 % (11.6-14.8); White Blood Cell Count 6.7 X10^3/uL (4.5-11.0)
[2024-10-16 15:37] LABS: Alanine Aminotransferase 21 IU/L (<35); Albumin 4.5 g/dL (3.5-5.0); Albumin Globulin Ratio 1.4 (1.0-2.8); Alkaline Phosphatase 55 U/L (38-126); Aspartate Aminotransferase 30 IU/L (14-36); BUN Creatinine Ratio 18.3 (6-22); Bilirubin Total 0.4 mg/dL (0.2-1.3); Blood Urea Nitrogen 15 mg/dL (7-17); Calcium 9.4 mg/dL (8.4-10.2); Carbon Dioxide 30 mmol/L (22-32); Chloride 102 mmol/L (98-107); Cholesterol 209 mg/dL (140-199); Estimated Glomerular Filt Rate > 60 mL/min (>60); Globulin 3.3 g/dL (1.7-4.1); Glucose 92 mg/dL (70-99); HDL Cholesterol 48 mg/dL (40-60); HEMOLYSIS < 15 (0-50); Hemoglobin A1C% w Est Avg Glu 5.1 % (4.0-6.0); LDL Cholesterol Calculated 145 mg/dL (<100); Potassium 4.5 mmol/L (3.4-5.1); Sodium 137 mmol/L (137-145); Total Protein 7.8 g/dL (6.3-8.2); Triglycerides 80 mg/dL (35-150)
== END ==
LOC: LAB 14:55
PROVIDERS: PCP Registered Nurse Diabetes Educator; Referring Provider Registered Nurse Diabetes Educator; Visit Provider Registered Nurse Diabetes Educator
DX: E78.5 Hyperlipidemia, unspecified (principal); R73.03 Prediabetes; R74.8 Abnormal levels of other serum enzymes; E04.1 Nontoxic single thyroid nodule; I10 Essential (primary) hypertension
CPT/HCPCS: 36415; 80053; 80061; 83036; 84443; 85027

== ENCOUNTER → 2024-10-20 14:20 | Outpatient (CLI) | payer OTHER, SELFPAY ==
--- NOTE | 2024-10-20 14:28 | DI.US.S_ITS ---
PROCEDURE: US THYROID INDICATIONS: FOLLOW UP NODULES TECHNIQUE: Real-time scanning was performed of the thyroid gland, with image documentation. COMPARISON: [facility], US, US THYROID, 10/17/2023, 16:47. FINDINGS: Thyroid: Right lobe measures 4.1 x 1.3 x 1.0 cm. Left lobe measures 4.5 x 1.9 x 2 cm. Isthmus is 0.37 cm thick. Echotexture is heterogeneous. Nodule number: 1 Location: Lower pole left thyroid lobe Size: 2 x 1.4 x 1.5 cm, previously 2 x 1.5 x 1.8 cm. Composition: Solid Echogenicity: Hypoechoic Shape: : Wider than tall Margins: Irregular Echogenic foci: Punctate Total points: 7 ACR TI-RADS category: 5 Nodule number: 2 Location: Midpole left thyroid lobe Size: 1.0 x 1.1 x 0.7 cm. Previously 1.0 x 1.2 x 0.7. Composition: Predominantly cystic Echogenicity: Anechoic Shape: Wider than tall Margins: Smooth Echogenic foci: None Total points: 0 ACR TI-RADS category: 1 Nodule number: 3 Location: Right isthmus Size: 0.8 x 1.0 x 0.5 cm, previously 0.9 x 0.8 x 0.5 cm Composition: Solid Echogenicity: Isoechoic Shape: Wider than tall Margins: Smooth Echogenic foci: None Total points: 3 ACR TI-RADS category: 3 Nodule number: 4 Location: Upper pole left thyroid lobe Size: 0.9 x 0.8 x 0.4 cm, previously 1 x 0.8 x 0.5 cm. Composition: Solid Echogenicity: Hypoechoic Shape: Wider than tall Margins: Irregular Echogenic foci: Punctate Total points: 7 ACR TI-RADS category: 5 IMPRESSION: 1. Patient's known bilateral thyroid nodules are essentially stable in size and overall appearance. Please correlate with previous ultrasound fine-needle aspiration results. Continued ultrasound follow-up is recommended. ACR TI-RADS definitions and recommendations: TI-RADS 1 (benign): 0 points. FNA not needed. TI-RADS 2 (not suspicious): 2 points. FNA not needed. TI-RADS 3: 3 points. * FNA if 2.5 cm or larger, follow up if 1.5 cm or larger (at 1, 3, and 5 years). TI-RADS 4: 4-6 points. * FNA if 1.5 cm or larger, follow up if 1 cm or larger (at 1, 2, 3, and 5 years). TI-RADS 5: 7 points or more. * FNA if 1 cm or larger, follow up if 0.5 cm or larger (every year for 5 years). Dictated by: Celso Espinoza M.D. on 10/20/2024 at 16:31 Approved by: Celso Espinoza M.D. on 10/20/2024 at 16:36
== END ==
LOC: US 14:22
PROVIDERS: PCP Registered Nurse Diabetes Educator; Referring Provider Registered Nurse Diabetes Educator; Visit Provider Registered Nurse Diabetes Educator
DX: E04.1 Nontoxic single thyroid nodule (principal); E78.5 Hyperlipidemia, unspecified; R73.03 Prediabetes; R74.8 Abnormal levels of other serum enzymes; I10 Essential (primary) hypertension
CPT/HCPCS: 76536

== ENCOUNTER → 2025-02-05 17:05 | Outpatient (CLI) | payer OTHER, SELFPAY ==
--- NOTE | 2025-02-05 17:06 | DI.MG.S_ITS ---
MM screening mammo BI: 02/05/2025. BI-RADS: 1 CLINICAL: 64-year old female for bilateral screening mammogram. Tyrer-Cuzick lifetime risk of 9.6%. No personal or first-degree family history of breast cancer. The patient had prior bilateral breast biopsies. PRIOR EXAMS 05/17/2023, 02/15/2021, 04/19/2018, 09/23/2015. MAMMOGRAPHY TECHNIQUE: 2D and 3D (tomosynthesis) digital mammographic views obtained, with additional images as needed for full coverage. Current study was also evaluated with a Computer Aided Detection (CAD) system. DENSITY C. The breasts are heterogeneously dense, which may obscure small masses. MAMMOGRAPHY FINDINGS Bilateral: No suspicious mass, asymmetry, microcalcification, or other abnormality seen. IMPRESSION: * No evidence of malignancy. RECOMMENDATIONS Bilateral * Annual screening mammography. OVERALL ASSESSMENT CATEGORY BI-RADS-1: Negative. The [employer] recommends annual screening mammography beginning at age 40 for women with average risk of breast cancer. ELECTRONICALLY SIGNED: Jaya Holman M.D. on 02/07/2025 at 08:54:23 AM PT Interpreting Station ID: [id number]
== END ==
PROVIDERS: PCP Registered Nurse Diabetes Educator; Referring Provider Registered Nurse Diabetes Educator; Visit Provider Registered Nurse Diabetes Educator
DX: Z12.31 Encounter for screening mammogram for malignant neoplasm of breast (principal); R92.333 Mammographic heterogeneous density, bilateral breasts
CPT/HCPCS: 77063; 77067